=== PATIENT | female | born 1965 | race Caucasian/White ===

== ENCOUNTER 2017-12-11 09:59 | Inpatient (IN) | payer OTHER ==
--- NOTE | 2017-12-07 09:02 | HISTORY & PHYSICAL EXAMINATION ---
DATE OF ADMISSION: 12/11/2017 CHIEF COMPLAINT: Left knee pain. HISTORY OF PRESENT ILLNESS: This is a 52-year-old female well known to me from previous right knee replacement done a little over 2 years ago. She did pretty well considering everything. She has got a long history of knee problems and her right knee has gotten worse over the past 2 years. She was initially followed by Dr. Reeder with steroid shots and viscosupplementation which had become less successful. Shots helped her for a couple days and that is about it. She is happy with her right knee and would like to have her left knee replaced. PAST MEDICAL HISTORY: 1. Gastroesophageal reflux disease. 2. Anxiety-related chest pain. 3. Elevated cholesterol. 4. Sleep apnea. 5. Diabetes 6. Dizziness/COPD with oxygen use at bedtime. 7. Significant smoking history of 1 pack per day. PAST SURGICAL HISTORY: Include: 1. Back surgery x2. 2. x3. 3. Hysterectomy. 4. Tonsillectomy. 5. Tubal ligation. 6. Right knee replacement done 08/28/2015. CURRENT MEDICATIONS: Include: 1. Lyrica. 2. Levaquin. 3. Cipro. 4. Flagyl. 5. Risperdal. 6. Ambien. 7. Prednisone. She reports itching with Percocet. CURRENT MEDICATIONS: Include 1. Effexor. 2. BuSpar. 3. Lorazepam. 4. Nexium. 5. Synthroid. 6. Simvastatin. 7. Zetia. 8. Fish oil. 9. Mobic. SOCIAL HISTORY: A 52-year-old female. She is from [place]. She is . Smokes a pack of cigarettes a day. FAMILY HISTORY: Significant for diabetes. REVIEW OF SYSTEMS: Significant for diabetes. She also smokes. No chest pain or shortness of breath. No DVT or PE. She does use oxygen at nighttime. PHYSICAL EXAMINATION: GENERAL: Reveals a pleasant, middle-aged female. Looks older than her stated age. HEENT: Benign. NECK: Supple. No lymphadenopathy. LUNGS: Clear to auscultation. HEART: Has a regular rate and rhythm. ABDOMEN: Soft, nontender, nondistended. EXTREMITIES: Grossly neurovascularly intact except as follows: Examination of the left knee reveals patient walks with a limp. She got varus alignment to her knee. She has got bony hypertrophy medially. Range of motion is 5 degrees short of full extension and 120 degrees of flexion. No instability. Examination of the right knee reveals well-healed incision. She does have some healed scabs throughout her integument system. Her range of motion is 0-120. No instability. X-RAYS: X-rays of the left knee reveal advanced medial compartment DJD. She has complete loss of medial joint space. She has got some lateral compartment disease as well. The right knee replacement looks to be in good position without signs of problems. ASSESSMENT: A 52-year-old female 2 years out from a right knee replacement with advanced left knee degenerative joint disease. She has failed conservative treatment and would like to have her left knee replaced. PLAN: We will take her to the operating room and do a left total knee replacement. The risks and benefits of this procedure were explained to the patient including but not limited to DVT, PE, , infection, neurological injury, vascular injury, bleeding problem, pain, limited range of motion, stiffness, failure to relieve of symptoms, incomplete relief of symptoms, need for further surgery in future, fracture, leg length inequality, nerve palsy, etc. The patient understands and desires to proceed. Informed consent was obtained. She does have a smoking history and will have to use a patch in the hospital. We will likely put some vancomycin in her cement as she does have formed scabs and itches. She did do okay with Dilaudid pain medicine last time. She is planning to be discharged to home using [facility] home health program. SHELBY
[~2017-12-11] VITALS: Ht 155.6 cm; Wt 75.0 kg
[~2017-12-11 09:59] MED LIST: ACETAMINOPHEN 500 MG TAB PO SCH; BUPIVACAINE LIPOSOME 266 MG, BUPIVACAINE/EPINEPHRINE INJ 50 ML, SODIUM CHLORIDE 0.9% PF... INFIL SCH; BUSP-8 PO; CALC600T9 PO; CEFAZOLIN 2000MG IV PUSH 15 ML IV SCH; EZET10TA47 PO; FAMOTIDINE 20 MG TAB PO SCH; GABAPENTIN 900 MG PO SCH; LACTATED RINGER'S 1000ML 1,000 ML IV SCH; LACTATED RINGER'S 1000ML 500 ML IV SCH; LEVO50TA6 PO; LORA-741 PO; MELO7.5T5 PO; METOCLOPRAMIDE HCL 10 MG TAB PO SCH; MISSING PHYSICIAN SIGNATURE ON ORDER SCH; MULT-506 PO; NXM/40 PO; OMEG10002 PO; SCOPOLAMINE 1.5 MG TDSY TD SCH; SIMV-151 PO; TRANEXAMIC ACID INJ 1,000 MG x 1 Bag Intra-Op IV SCH; VENL150C56 PO; VENL75TA4 PO
[2017-12-11 10:31] VITALS: BP 129/72; PULSE 63; TEMP 36.9; O2SAT 96; Ht 155.6 cm; Wt 75.0 kg
--- NOTE | 2017-12-11 11:06 | History & Physical Bridge Note ---
H&P Re-Evaluation Bridge Note: I have examined the patient, reviewed the History & Physical and in the interval since the performance of the History & Physical I have noted the following changes of clinical significance: No changes noted
[2017-12-11] MEDS: CEFAZOLIN 2000MG IV PUSH 15 ML IV SCH ×2 (11:30→13:52)
[2017-12-11] MEDS ORDERED: BUPIVACAINE LIPOSOME 1/3% 266 MG/20 ML VIAL ONE (13:35)
[2017-12-11] MEDS ORDERED: SODIUM CHLORIDE 0.9% PF 50 ML VIAL ONE (13:35)
[2017-12-11] MEDS ORDERED: BACITRACIN 50000 UNIT VIAL ONE (13:35)
[2017-12-11] MEDS ORDERED: EpINEphrine INJ 1MG/ML AMP 1 MG/ML AMP ONE (13:36)
[2017-12-11] MEDS ORDERED: BUPIVACAINE 0.25% 30 ML VIAL ONE (13:36)
[2017-12-11] MEDS ORDERED: EpHEDrine SULFATE INJ 50 MG/ML AMP IV PRN (13:45)
[2017-12-11] MEDS ORDERED: ONDANSETRON INJ 2 MG/ML 2 ML VIAL IV PRN ×2 (13:45→16:00)
[2017-12-11] MEDS ORDERED: KETOROLAC TROMETHAMINE 30 MG/ML VIAL IV. PRN (13:45)
[2017-12-11] MEDS ORDERED: ATROPINE SULFATE 0.1 MG/ML 5ML SYR IV PRN (13:45)
[2017-12-11] MEDS ORDERED: HYDROmorphone INJ 2 MG/ML SYR/VIAL IV PRN (13:45)
[2017-12-11] MEDS ORDERED: PHENYLEPHRINE 100MCG/ML 5ML SYR IV PRN (13:45)
[2017-12-11] MEDS ORDERED: VANCOMYCIN HCL 1000MG/20ML VIAL ONE (13:46)
--- NOTE | 2017-12-11 15:58 | [facility] Post Operative Brief Note ---
Immediate Operative Summary Operative Date Dec 11, 2017. Pre-Operative Diagnosis Degenerative joint disease left knee Post-Operative Diagnosis same Procedure(s) Performed Left total knee arthroplasty Surgeon Mellisa Medina Natural Resources Manager Surgeon(s) Elinor James PA-C Estimated Blood Loss 50 ml Findings Consistent with Post-Op Diagnosis Fluids (cc crystalloids) 1600 cc Specimens a. bone and tissue left knee Drains None Anesthesia Type Spinal MAC Complication(s) none Disposition Accompanied Pt To Recover: yes Disposition: Recovery Room / PACU Overlapping Procedure I was present for: the critical portions of procedure. I was immediately available: during the entire case
[2017-12-11] MEDS ORDERED: DiphenhydrAMINE HCL 50 MG/ML VIAL IV PRN (16:00)
[2017-12-11] MEDS ORDERED: GLUCOSE 10 TABS/TUBE PO PRN (16:00)
[2017-12-11] MEDS ORDERED: SILVER SULFADIAZINE 1% CR 50 GM JAR EXT PRN (16:00)
[2017-12-11] MEDS ORDERED: GLUCAGON FOR INJ 1 MG VIAL SQ PRN (16:00)
[2017-12-11] MEDS ORDERED: BISACODYL 10 MG SUPP PR PRN (16:00)
[2017-12-11] MEDS ORDERED: CHECK SCOPOLAMINE PATCH PLACEMENT SCH (16:00)
[2017-12-11] MEDS ORDERED: CARBOHYDRATES FOR HYPOGLYCEMIA PO PRN (16:00)
[2017-12-11] MEDS ORDERED: METOCLOPRAMIDE HCL INJ 5 MG/ML 2 ML VIAL IV PRN (16:00)
[2017-12-11] MEDS ORDERED: ALUMINUM/MAGNESIUM/SIMETH (MAALOX MAX) 30 ML UDC PO PRN (16:00)
[2017-12-11] MEDS ORDERED: MAGNESIUM HYDROXIDE SUSP 30 ML UDC PO PRN (16:00)
[2017-12-11] MEDS ORDERED: DEXTROSE 50% 50 ML SYR IV PRN (16:00)
[2017-12-11] MEDS ORDERED: GLUCOSE 40% GEL 15 GM TUBE PO PRN (16:00)
[2017-12-11] MEDS ORDERED: ZOLPIDEM TARTRATE 5 MG TAB PO PRN (16:00)
--- NOTE | 2017-12-11 16:33 | DIAGNOSTIC IMAGING REPORT ---
L KNEE 1 OR 2 VIEWS ROUTINE CLINICAL HISTORY: AP/LATERAL IN PACU LEFT KNEE COMPARISON: None. DISCUSSION: Anatomic alignment post total left knee arthroplasty. Expected soft tissue postoperative change IMPRESSION: Anatomic alignment post total left knee arthroplasty. The above report was generated using voice recognition software. It may contain grammatical, syntax or spelling errors. Electronically signed by: Jad Magdaleno M.D. 12/11/2017 4:32 PM Dictated Date/Time: 12/11/2017 4:31 PM
--- NOTE | 2017-12-11 17:15 | Anesthesiology Progress Note ---
Anesthesia Post Op Note Date & Time Dec 11, 2017 at 17:14 Vital Signs Pain Intensity: 0 Vital Signs Past 12 Hours Date Time Temp Pulse Resp B/P (MAP) Pulse Ox O2 Delivery O2 Flow Rate FiO2 12/11/17 17:01 95/57 12/11/17 16:59 62 16 97 12/11/17 16:59 63 16 12/11/17 16:56 101/58 12/11/17 16:54 62 16 97 12/11/17 16:54 62 16 12/11/17 16:51 98/59 12/11/17 16:49 61 16 97 12/11/17 16:49 61 16 12/11/17 16:46 94/60 12/11/17 16:44 64 16 12/11/17 16:44 65 16 97 12/11/17 16:41 103/57 12/11/17 16:39 60 15 97 12/11/17 16:39 60 15 12/11/17 16:38 62 16 97 12/11/17 16:38 61 16 12/11/17 16:36 36.8 63 18 104/63 (73) 97 Nasal Cannula 2 12/11/17 16:36 104/63 12/11/17 16:33 62 16 96 12/11/17 16:33 62 16 12/11/17 16:31 101/61 12/11/17 16:28 65 17 96 12/11/17 16:28 64 17 12/11/17 16:27 71 18 12/11/17 16:27 71 18 97 12/11/17 16:26 129/77 12/11/17 16:22 61 16 99 12/11/17 16:22 62 16 12/11/17 16:21 62 16 12/11/17 16:21 62 16 99 12/11/17 16:20 100/61 12/11/17 16:10 65 18 104/58 (74) 95 Oxymask 10 12/11/17 16:01 36.1 71 16 109/61 (77) 96 Oxymask 10 12/11/17 10:31 36.9 63 18 129/72 96 Room Air Notes Mental Status: alert / awake / arousable, participated in evaluation Pt Amnestic to Procedure: Yes Nausea / Vomiting: adequately controlled Pain: adequately controlled Airway Patency, RR, SpO2: stable & adequate BP & HR: stable & adequate Hydration State: stable & adequate Anesthetic Complications: no major complications apparent
[2017-12-11 17:35] VITALS: BP 105/63; PULSE 68; TEMP 37.4; O2SAT 96
[2017-12-11 18:05] VITALS: BP 104/69; PULSE 63; TEMP 37; O2SAT 97
[2017-12-11 18:33] VITALS: BP 102/62; PULSE 63; TEMP 37; O2SAT 98
[2017-12-11] MEDS: CHECK SCOPOLAMINE PATCH PLACEMENT SCH ×2 (18:42→23:40)
[2017-12-11] MEDS: FERROUS GLUCONATE 324 MG TAB PO SCH (19:03)
[2017-12-11] MEDS: SODIUM CHLORIDE 0.9% 1000ML 1,000 ML IV SCH (19:11)
[2017-12-11 19:32] VITALS: BP 116/72; PULSE 69; TEMP 37.1; O2SAT 99
[2017-12-11] MEDS: HYDROmorphone INJ 0.5 MG/0.5 ML SYR IV PRN ×3 (20:06→23:33)
[2017-12-11] MEDS: HYDROmorphone HCL 2 MG TAB PO PRN (20:45)
[2017-12-11] MEDS: INSULIN HUMAN REGULAR SC SCH (21:00)
[2017-12-11] MEDS: KETOROLAC TROMETHAMINE 30 MG/ML VIAL IV. SCH (21:28)
[2017-12-11] MEDS: CEFAZOLIN IV 1,000 MG in SYRINGE 0 ML IV SCH (21:28)
[2017-12-11] MEDS: LORAZEPAM 0.5 MG TAB PO SCH (21:28)
[2017-12-11] MEDS: SENNA 8.6 MG TAB PO SCH (21:30)
[2017-12-11] MEDS: ACETAMINOPHEN 500 MG TAB PO SCH (21:30)
[2017-12-11] MEDS: SIMVASTATIN 20 MG TAB PO SCH (21:30)
[2017-12-11] MEDS: ASPIRIN 81 MG ECTAB PO SCH (21:30)
[2017-12-11] MEDS: EZETIMIBE 10MG TAB PO SCH (21:30)
[2017-12-11] MEDS: DOCUSATE SODIUM 100 MG CAP PO SCH (21:31)
[2017-12-11] MEDS: NICOTINE 14 MG/24 HR TDSY TD SCH (21:43)
--- NOTE | 2017-12-11 21:44 | OPERATIVE REPORT ---
DATE OF OPERATION: 12/11/2017 SURGEON: Marty Medina MD ENGRAVER MACHINE: Xiang James PA-C PREOPERATIVE DIAGNOSIS: Left knee degenerative joint disease. POSTOPERATIVE DIAGNOSIS: Left knee degenerative joint disease. PROCEDURE PERFORMED: Left cemented posterior stabilized total knee arthroplasty. COMPLICATIONS: None. ESTIMATED BLOOD LOSS: 50 mL. FLUID REPLACEMENT: 1600 mL crystalloid fluid replacement. ANESTHESIA: Spinal with adductor canal block. DRAINS: None. SPECIMENS: Left knee sent for pathology. TOURNIQUET TIME: 70 minutes at 300 mmHg. OPERATIVE INDICATIONS: The patient is a 52-year-old female who has had a long history of bilateral knee pain and discomfort, treated conservatively by multiple physicians over the years. This became less successful and became really debilitated by her knee pain and discomfort and limitations. She underwent a right knee replacement 2 years ago and has done well from this. She elected to do a left total knee arthroplasty. OPERATIVE FINDINGS: Operative findings revealed advanced left knee DJD. She had extensive grade 4 changes in the medial femoral condyle. There is not much in the way of eburnation. The rest of the knee joint looked pretty well preserved. She did have a very large knee joint effusion with varus deformity to her knee. OPERATIVE IMPLANTS: Operative implants consisted of: 1. Biomet Vanguard size-55 left posterior stabilized femoral component. 2. Biomet size-59 tibial tray. 3. A 12 mm posterior stabilized polyethylene insert. 4. A 25 x 8 all poly patella. OPERATIVE PROCEDURE: The patient was taken to the operating room, identified and placed on the operating table in supine position. All contact areas were appropriately padded. IV antibiotics were provided by anesthesia team. A spinal anesthetic and adductor canal block had been provided in the holding area. Garcia catheter was placed in sterile fashion. A left thigh tourniquet was then placed. Left lower extremity was then prepped and draped in usual sterile fashion. Left leg was elevated, exsanguinated with Esmarch, and tourniquet was placed at 300 mmHg. An anterior approach to the left knee was then performed through a longitudinal incision centered over the patella. Sharp dissection was carried through the subcutaneous tissues down to the level of the extensor mechanism. A medial parapatellar arthrotomy incision was made. Similar subperiosteal dissection was carried out medially. The fat pad was resected from beneath the patellar tendon. The lateral patellofemoral ligament was released. Patella was everted and the knee was flexed. The osteophytes were taken off the distal femur. The ACL and PCL were then released from the distal femur and the tibia subluxated anteriorly. External tibial alignment jig was then placed in the anterior face of the tibia and adjusted 14 mm medially. A proximal tibial cut was made to remove about 2-3 mm of bone from the medial side, as there was not a lot of bony wear on the medial side. Tibia was sized to a size 59. We did remove some osteophytes in the posterior medial side of the tibia. Attention was then drawn to femur. The distal femur was entered with a sharp drill. Intramedullary canal was suctioned. A left 5-degree valgus cutting guide was placed. Distal femoral cutting block was pinned in place. Distal femoral cut was made to take an additional 3 mm of bone off the distal femur. The femur was then sized to a size-55. We did downsize this slightly. The AP cutting block was pinned parallel to the epicondylar axis, which was 3 degrees of external rotation. The anterior cut, anterior chamfer cut, posterior cut, posterior chamfer cuts were made. Box cutting guide was placed slightly lateral and the box cut was made. The knee was flexed. The remnants of the medial and lateral menisci were excised. The osteophytes were taken off the posterior aspect of the femur. Trial femoral component was placed. Tibial tray was pinned in maximum external rotation and the drill and stem punch were used to create defect in proximal tibia for the tibial tray. The knee was then trialed and the 12 mm insert fit most appropriately. It was just a little bit loose with a 10 insert in. Attention was then drawn to the patella. The patella was cleaned of all soft tissues. Patella thickness measured 20 mm in thickness, cut down to 12 mm. It was sized to a size-25 patella. Lug holes were drilled for 25-patella. The lateral osteophyte was removed. Patella button was placed. Knee was taken through range of motion and patella tracked nicely with no thumbs test. Attention then drawn toward placement of permanent components. All trial components were removed. Bone plug was placed in the distal femur to limit blood loss. A double batch of Palacos-G cement was mixed. I did add an additional gram of vancomycin due to this patient's history of multiple scabs and ulcerations. A left size-55 posterior stabilized femoral component, size-59 tibial tray, a 12 mm posterior stabilized polyethylene insert, and a 25 x 8 all poly patella then cemented in place. Knee was brought out into full extension until cement hardened. A final cement check was then performed. The pericapsular tissues were injected with a total of 100 mL of combination of 20 mL of Exparel, 30 mL of normal saline, 50 mL of 0.25% Marcaine with epinephrine. The patient did receive 1 g of tranexamic acid. The tourniquet was then let down for a final tourniquet time of 70 minutes. Hemostasis was assured with use of electrocautery. The extensor mechanism was then closed with a combination of #1 PDS and #1 Vicryl suture in a [id number] fashion. Extensor mechanism was checked and found to be intact. The subcutaneous tissue then closed with 2-Dexon suture in a buried interrupted fashion. Skin was closed with skin rox. Leg was then cleaned and dried and a sterile dressing of Xeroform, 4 x 4s, sterile cast padding and Kaz bandage were applied. The patient then transferred to the recovery room in stable condition. The patient tolerated the procedure well with no complications. All needle and sponge counts were correct at the end of the operation. I attest to the content of the Intraoperative Record and any orders documented therein. Any exceptions are noted below. AURELIAD
[2017-12-11] MEDS ORDERED: TRANEXAMIC ACID INJ 1,000 MG in SODIUM CHLORIDE 0.9% 100ML 100 ML IV SCH (22:00)
[2017-12-11 22:26] VITALS: BP 117/75; PULSE 72; TEMP 37; O2SAT 94
[2017-12-12] MEDS: HYDROmorphone HCL 2 MG TAB PO PRN ×5 (02:22→23:08)
[2017-12-12 03:02] VITALS: BP 117/74; PULSE 73; TEMP 36.9; O2SAT 99
[2017-12-12] MEDS: KETOROLAC TROMETHAMINE 30 MG/ML VIAL IV. SCH ×4 (04:03→21:11)
[2017-12-12] MEDS: SODIUM CHLORIDE 0.9% 1000ML 1,000 ML IV SCH ×2 (04:08→14:58)
[2017-12-12] MEDS: ACETAMINOPHEN 500 MG TAB PO SCH ×3 (06:04→21:11)
[2017-12-12] MEDS: LEVOTHYROXINE 50 MCG TAB PO SCH (06:04)
[2017-12-12] MEDS: CEFAZOLIN IV 1,000 MG in SYRINGE 0 ML IV SCH (06:09)
[2017-12-12 06:39] LABS: HEMATOCRIT 35.1 % (37-47); HEMOGLOBIN 11.6 g/dL (12.0-16.0); MEAN CELL VOLUME 95.1 fL (80-100); MEAN CORPUSCULAR HEMOGLOBIN 31.4 pg (25-34); MEAN PLATELET VOLUME 8.8 fL (7.4-10.4); PLATELET COUNT 296 K/uL (130-400); RED CELL DISTRIBUTION WIDTH CV 12.8 % (11.5-14.5); RED CELL DISTRIBUTION WIDTH SD 44.3 fL (36.4-46.3); WHITE BLOOD COUNT 12.24 K/uL (4.8-10.8)
[2017-12-12 07:09] LABS: CALCIUM 8.4 mg/dl (8.5-10.1); CREATININE 0.48 mg/dl (0.60-1.20); POTASSIUM 3.7 mmol/L (3.5-5.1)
[2017-12-12 07:34] VITALS: BP 108/72; PULSE 70; TEMP 37.1; O2SAT 93
[2017-12-12] MEDS: INSULIN HUMAN REGULAR SC SCH ×4 (08:00→20:54)
[2017-12-12] MEDS: CHECK SCOPOLAMINE PATCH PLACEMENT SCH ×3 (08:02→23:02)
[2017-12-12] MEDS: VENLAFAXINE HCL XR 150 MG CAPXR PO SCH (08:53)
[2017-12-12] MEDS: FERROUS GLUCONATE 324 MG TAB PO SCH ×3 (08:53→18:09)
[2017-12-12] MEDS: MULTIVITAMIN TAB PO SCH (08:54)
[2017-12-12] MEDS: PANTOprazole SOD 40 MG TAB PO SCH (08:54)
[2017-12-12] MEDS: DOCUSATE SODIUM 100 MG CAP PO SCH ×2 (08:54→20:45)
[2017-12-12] MEDS: CALCIUM 600MG + VIT D 400 IU TAB PO SCH (08:54)
[2017-12-12] MEDS: ASPIRIN 81 MG ECTAB PO SCH ×2 (08:54→20:44)
[2017-12-12] MEDS: VENLAFAXINE HCL XR 75 MG CAPXR PO SCH (08:54)
[2017-12-12] MEDS ORDERED: PANTOprazole SOD 40 MG TAB PO SCH (09:00)
[2017-12-12] MEDS ORDERED: MULTIVITAMIN TAB PO SCH (09:00)
[2017-12-12] MEDS: LORAZEPAM 0.5 MG TAB PO SCH ×2 (09:02→20:55)
--- NOTE | 2017-12-12 09:03 | PROGRESS NOTE ---
DATE: 12/12/2017 SUBJECTIVE: A 52-year-old female postop day 1 from a left knee replacement. She is doing pretty well. Pain is controlled. Denies any chest pain, no shortness of breath. Not feeling dizzy or lightheaded. OBJECTIVE: VITAL SIGNS: Temperature is 36.9. Stable. GENERAL: Physical examination reveals a pleasant middle-aged female. She is lying in bed, looks comfortable. LUNGS: Clear to auscultation. HEART: Regular rate and rhythm. ABDOMEN: Soft, nontender, nondistended. EXTREMITIES: Grossly neurovascularly intact except as follows: Examination of the left leg reveals the leg to be well aligned. Dressing is clean, dry, and intact. She can dorsiflex and plantarflex her foot appropriately. She is neurologically intact. LABORATORY DATA: Hemoglobin 11.6, hematocrit 35.1. Electrolytes are stable. ASSESSMENT: A 52-year-old female postop day 1 from the left knee replacement, doing pretty well. Pain is controlled. She is neurologically intact. PLAN: 1. DVT prophylaxis including thigh-high TEDs, SCDs, and aspirin twice a day. 2. PT/OT. Weight bear as tolerated. Left total knee protocol. 3. Pain control, doing pretty well, with current pain regimen. 4. Disposition: Plan is to discharge to home with some home health once adequately recovered.
[2017-12-12] MEDS: NICOTINE 14 MG/24 HR TDSY TD SCH (09:37)
[2017-12-12] MEDS: HYDROmorphone INJ 0.5 MG/0.5 ML SYR IV PRN ×3 (09:38→19:23)
[2017-12-12 11:25] VITALS: BP 109/72; PULSE 78; TEMP 37.6; O2SAT 94
[2017-12-12 15:10] VITALS: BP 121/72; PULSE 88; TEMP 37.5; O2SAT 92
[2017-12-12] MEDS ORDERED: DLD/2 PO (17:55)
[2017-12-12] MEDS ORDERED: ACET-24 PO (17:55)
[2017-12-12] MEDS ORDERED: ASPI-461 PO (17:55)
--- NOTE | 2017-12-12 17:57 | Discharge Instructions ---
Discharge Instructions Date of Service Dec 12, 2017. Admission Reason for Admission: Discharge Discharge Diagnosis / Problem: Left Knee Replacement Discharge Goals Goal(s): Decrease discomfort, Improve function, Increase independence, Improve disease control, Therapeutic intervention Activity Recommendations Activity Limitations: per Instructions/Follow-up section Weightbearing Status: Left weightbearing . Instructions / Follow-Up Instructions / Follow-Up ACTIVITY RECOMMENDATIONS: Physical Therapy: * You will go to physical therapy three times each week for four to six weeks after your surgery in order to regain your knee range of motion and to retrain your knee to work properly. * It is just as important to make sure you are getting your knee perfectly straight as it is to regain your knee bend. * Taking a pain pill an hour before therapy can help you have a more productive and comfortable therapy session. Home Exercise: * You were shown a series of exercises (heel props, heel slides, etc.) in the hospital. Do these exercises three to four times each day including the exercises you were shown in physical therapy. Walking: * Get up and walk several times each day. For the first four weeks, try not to stand or walk for more than one hour at a time. If you do stand or walk for more than one hour, you will not hurt anything, but your knee and leg will likely swell. * As you feel comfortable, you may change from the walker or crutches to a cane and then to independent walking. MEDICATIONS: New Medicine: * You will likely be taking one or more of these medications: 1. Dilaudid - A quick and shorter-acting pain medication. Take one to two tablets every four to six hours to lessen your pain. 2. Aspirin - Thins your blood to lessen the chance of forming a blood clot. * The most common side effects of pain medicine and iron are nausea and constipation. If nausea or constipation is too much of a problem or if you have any questions about your new medicines or doses, call [facility] at . We will try to help you manage these issues. VERY IMPORTANT TO READ AND REVIEW" Pain: * The immediate post-operative period after knee replacement surgery is often quite painful. * You are given a prescription for pain medicine. You should take it, as directed, when you need it, especially before physical therapy and before going to bed. Pain that interferes with sleep is very common and can last several months. * You will likely need pain medicine for the first four to six weeks. It will not stop all of the pain. The pain will lessen and as you feel better, you may change to milder pain medicine such as Tylenol. * The most common side effects of pain medicine are nausea and constipation, so don't take more than you need. SPECIAL CARE INSTRUCTIONS: TEDs/Elastic Stockings: * The white elastic stockings help limit swelling and prevent blood clots from forming in your legs. The more you wear them, the more they work. * Wear them for six weeks after knee replacement surgery and four weeks after partial knee replacement. Prevention of Infection: * Take antibiotics one hour before any dental cleaning, dental work, urological procedure, gastrointestinal procedure or any invasive surgery in order to prevent your new joint from getting infected. * You may get the antibiotics from the doctor performing the procedure or you may call our office at before and we will call in a prescription to the pharmacy of your choice. Things to Watch For: * Drainage from the incision site that occurs more than one week after your surgery. * Severely increased knee/leg pain or swelling. * Increased redness at the incision site. * Fever above 102 degrees Fahrenheit. * Unusual chest pain or shortness of breath. * Unusual pain or burning with urination. Call [facility] at with any of the above problems or if you have any questions about your medicines or recovery. FOLLOW UP VISIT: Make an appointment to see your doctor for approximately two weeks after surgery for a progress check and staple removal by calling the office at . Current Hospital Diet Patient's current hospital diet: Diabetes Type 2 Diet Discharge Diet Recommended Diet: Diabetes Type 2 Diet Procedures Procedures Performed: Left total knee arthroplasty Pending Studies Studies pending at discharge: no Medical Emergencies . Who to Call and When: Medical Emergencies: If at any time you feel your situation is an emergency, please call 529 immediately. . Non-Emergent Contact Non-Emergency issues call your: Surgeon . "Provider Documentation" section prepared by Marty Medina. .
[2017-12-12] MEDS: EZETIMIBE 10MG TAB PO SCH (20:45)
[2017-12-12] MEDS: SIMVASTATIN 20 MG TAB PO SCH (20:45)
[2017-12-12] MEDS: SENNA 8.6 MG TAB PO SCH (20:46)
[2017-12-12 22:52] VITALS: BP 111/73; PULSE 78; TEMP 36.9; O2SAT 92
[2017-12-13] MEDS: KETOROLAC TROMETHAMINE 30 MG/ML VIAL IV. SCH ×2 (04:14→10:00)
[2017-12-13] MEDS: LEVOTHYROXINE 50 MCG TAB PO SCH (05:42)
[2017-12-13] MEDS: ACETAMINOPHEN 500 MG TAB PO SCH (05:43)
[2017-12-13 07:30] VITALS: BP 108/74; PULSE 67; TEMP 36.8; O2SAT 92
[2017-12-13] MEDS: CHECK SCOPOLAMINE PATCH PLACEMENT SCH (07:44)
--- NOTE | 2017-12-13 07:47 | PROGRESS NOTE ---
DATE: 12/13/2017 SUBJECTIVE: A 52-year-old white female postop day 2 from a left knee replacement. She is doing pretty well. Pain is reasonably well controlled. No chest pain or shortness of breath. Not feeling dizzy or lightheaded. OBJECTIVE: VITAL SIGNS: Temperature 36.9. Vital signs stable. GENERAL: Physical examination reveals a pleasant, middle-aged female. She is sitting up in bed, looks pretty comfortable. EXTREMITIES: Examination of left leg reveals the dressing to be in place. A little bit of bloody drainage on the superior aspect. Calf is soft and supple. She is neurologically intact. ASSESSMENT: A 52-year-old white female postop day 2 from left knee replacement, doing pretty well. Pain is controlled. PLAN: 1. DVT prophylaxis including thigh-high TEDs, SCDs, and aspirin twice a day. 2. PT/OT. Weight bear as tolerated. Right total knee protocol. 3. Pain control, doing pretty well with current pain regimen. 4. Disposition: Plan to discharge to home with home health later today.
[2017-12-13] MEDS: INSULIN HUMAN REGULAR SC SCH (08:00)
[2017-12-13 08:43] VITALS: BP 108/74; PULSE 67; TEMP 36.8; O2SAT 92
[2017-12-13] MEDS: VENLAFAXINE HCL XR 150 MG CAPXR PO SCH (09:02)
[2017-12-13] MEDS: DOCUSATE SODIUM 100 MG CAP PO SCH (09:03)
[2017-12-13] MEDS: ASPIRIN 81 MG ECTAB PO SCH (09:03)
[2017-12-13] MEDS: FERROUS GLUCONATE 324 MG TAB PO SCH (09:03)
[2017-12-13] MEDS: MULTIVITAMIN TAB PO SCH (09:03)
[2017-12-13] MEDS: CALCIUM 600MG + VIT D 400 IU TAB PO SCH (09:03)
[2017-12-13] MEDS: PANTOprazole SOD 40 MG TAB PO SCH (09:03)
[2017-12-13] MEDS: VENLAFAXINE HCL XR 75 MG CAPXR PO SCH (09:03)
[2017-12-13] MEDS: NICOTINE 14 MG/24 HR TDSY TD SCH (09:04)
[2017-12-13] MEDS: HYDROmorphone HCL 2 MG TAB PO PRN (09:17)
[2017-12-13] MEDS: LORAZEPAM 0.5 MG TAB PO SCH (09:17)
== END 2017-12-13 11:46 | disposition home health service (06) | DRG 470 ==
LOC: C.ACU 09:59 → EDSTATUS 10:07 → C.3E 10:30 → ENRESERV 16:23
PROVIDERS: ADMIT Orthopaedic Surgery Sports Medicine; ATTEND Orthopaedic Surgery Sports Medicine
PROC: 0SRD0J9 Replacement of Left Knee Joint with Synthetic Substitute, Cemented, Open Approach (ICD-10-PCS; principal; 2017-12-11 13:00)
DX: M17.12 Unilateral primary osteoarthritis, left knee (principal); Z96.651 Presence of right artificial knee joint; J44.9 Chronic obstructive pulmonary disease, unspecified; K21.9 Gastro-esophageal reflux disease without esophagitis; E11.9 Type 2 diabetes mellitus without complications; E78.00 Pure hypercholesterolemia, unspecified; F41.9 Anxiety disorder, unspecified; F17.210 Nicotine dependence, cigarettes, uncomplicated; Z79.899 Other long term (current) drug therapy; Z79.1 Long term (current) use of non-steroidal anti-inflammatories (NSAID); Z83.3 Family history of diabetes mellitus